=== PATIENT | female | born 1960 | race Two or more races ===

== ENCOUNTER 2019-12-15 12:14 | Outpatient (CLI) | payer OTHER | END 2019-12-15 13:00 | disposition home or self-care (01) | LOC: OFIC 805 12:14 | PROVIDERS: ATTEND Otolaryngology Otology & Neurotology | DX: H61.22 Impacted cerumen, left ear (principal) ==

== ENCOUNTER 2019-12-20 11:02 | Outpatient (CLI) | payer OTHER | END 2019-12-20 13:00 | disposition home or self-care (01) | LOC: OFIC 805 11:02 | PROVIDERS: ATTEND Otolaryngology Otology & Neurotology | DX: H61.22 Impacted cerumen, left ear (principal) ==